=== PATIENT | female | born 1940 | race Caucasian/White ===

== ENCOUNTER 2024-06-10 08:00 | Outpatient (CLI) | payer MEDICARE | END 2024-06-10 08:01 | disposition home or self-care (01) | LOC: CSHWCC 08:00 | PROVIDERS: ATTEND Nurse Practitioner Family | DX: L97.212 Non-pressure chronic ulcer of right calf with fat layer exposed (principal) | CPT/HCPCS: 11104; G0463; 88305; 99215 ==

== ENCOUNTER 2024-06-17 09:40 | Outpatient (CLI) | payer MEDICARE | END 2024-06-17 09:41 | disposition home or self-care (01) | LOC: CSHWCC 09:40 | PROVIDERS: ATTEND Nurse Practitioner Family | DX: L97.212 Non-pressure chronic ulcer of right calf with fat layer exposed (principal) | CPT/HCPCS: 99212; G0463 ==

== ENCOUNTER 2024-07-01 11:02 | Outpatient (CLI) | payer MEDICARE | END 2024-07-01 11:03 | disposition home or self-care (01) | LOC: CSHWCC 11:02 | PROVIDERS: ATTEND Family Medicine | DX: L97.212 Non-pressure chronic ulcer of right calf with fat layer exposed (principal); C44.712 Basal cell carcinoma of skin of right lower limb, including hip | CPT/HCPCS: 99212; G0463 ==

== ENCOUNTER 2024-07-08 10:38 | Outpatient (CLI) | payer MEDICARE | END 2024-07-08 10:39 | disposition home or self-care (01) | LOC: CSHWCC 10:38 | PROVIDERS: ATTEND Nurse Practitioner Family | DX: L97.212 Non-pressure chronic ulcer of right calf with fat layer exposed (principal); C44.712 Basal cell carcinoma of skin of right lower limb, including hip | CPT/HCPCS: 99212; G0463 ==

== ENCOUNTER 2025-02-23 13:57 | Outpatient (CLI) | payer MEDICARE | END 2025-02-23 13:58 | disposition home or self-care (01) | LOC: CSHMAMMO 13:57 | PROVIDERS: ATTEND Family Medicine | DX: N64.89 Other specified disorders of breast (principal) | CPT/HCPCS: 76642; 77065; G0279 ==